=== PATIENT | female | born 1990 | race African-American/Black ===

== ENCOUNTER 2019-10-16 19:25 | Observation (INO) ==
[2019-10-16] MEDS ORDERED: SODIUM CHLORIDE 0.9% 1000ML 1,000 ML IV ONE (19:48)
--- NOTE | 2019-10-16 19:55 | Emergency Department Note ---
Impression & Plan Acute GI bleeding, Colitis, Proctitis ED Provider Note NAME: KAVEH PADGETT AGE: 29 SEX: F : 1990 ARRIVES VIA: Walk-In INFORMANT: [Patient] ED PROVIDER(S): [Wilman Aguillon MD] CHIEF COMPLAINT: Rectal bleeding HISTORY OF PRESENT ILLNESS: Patient is a 29-year-old female presents to the ER with about 40 to 50 minutes of rectal bleeding. The patient was in the ED 5 days ago for constipation and was given an enema. Since the enema, she has had loose stool. She has been to urgent care a few times for some rectal irritation and is now on a rectal cream as well as some Tylenol 3. The patient states that her rectal discomfort was improving. Today, she suddenly had blood per rectum, patient even noticed the blood on her underwear. She has had no abdominal pain. No fever, chills, cough or congestion. Patient states that she has felt dizzy and kind of weak though over the last couple days, she thinks she might be dehydrated. She has no history of constipation or of rectal bleeding. She is about 2 or 3 weeks into her menstrual cycle. No concern for . REVIEW OF SYSTEMS: See HPI for pertinent positives and negatives. A total of ten systems were reviewed and were otherwise negative. PMHx/PSHx: See Below SOCIAL HISTORY: See Below. PHYSICAL EXAM: GENERAL: Patient is in no acute distress. HEENT: No acute trauma, normocephalic atraumatic, mucous membranes moist, no nasal congestion, no scleral icterus. NECK: No stridor, no adenopathy, no meningismus, trachea is midline. LUNGS: Clear to auscultation bilaterally, no wheeze, no rhonchi, breath sounds equal. HEART: Without murmurs gallops or rubs, regular rate and rhythm. ABDOMEN: Soft, nontender, bowel sounds positive, no hernias, no peritonitis. EXTREMITIES: No cyanosis or edema, full range of motion of all the joints without pain or difficulty, no signs for acute trauma. NEUROLOGIC: Oriented x 3, no acute motor or sensory deficits, no focal weakness. SKIN: No rash, no jaundice, no diaphoresis. Rectal: The patient does have some anal irritation, no active bleeding to the areas of irritation. There is no hemorrhoid. She does have dark blood coming from within the rectum. DIFFERENTIAL DIAGNOSIS: Diverticulosis, AVM, coagulopathy, colitis, inflammatory bowel disease, malignancy, Lizette-Alvarado tear, esophagitis, peptic ulcer disease, variceal bleed, gastritis, epistaxis, fissure, hemorrhoids, as well as other pathologies. EMERGENCY DEPARTMENT COURSE/PROCEDURES: MEDICAL DECISION MAKING: There is no leukocytosis or anemia. She has a normal platelet count. No significant electrolyte abnormality or kidney failure. There were a few very subtle liver enzyme elevations, the bilirubin was normal. Lipase is normal. testing was negative. Abdominal and pelvic T shows sigmoid colitis and proctitis. No bowel obstruction, no drainable abscess. On exam, the patient did not have any abdominal pain. She did have dark maroon-colored blood within the rectum. There was some anal excoriation seen as well. The patient presents with rectal bleeding. She does have a lower GI bleed by my exam. She likely is bleeding from the colitis and proctitis. I did speak with GI, the patient does not require any emergent GI procedure this evening. I do think a hospital stay is warranted. Her hemoglobin needs trended. She needs monitoring. She may in fact require a GI procedure/colonoscopy. I spoke to the patient, I talked with the family service caseworker. The on-call hospitalist was consulted. Past Med/Surg History Medical History Hypothyroidism Sjogren's disease Social History Feels Safe at Home: Yes Smoking Status: Former smoker Allergies Allergies Allergy/AdvReac Type Severity Reaction Status Date / Time albuterol AdvReac Intermediate CHEST Verified 10/16/19 21:26 HEAVINESS Home Meds Home Medications Medication Instructions Recorded Confirmed carbamazepine 600 mg PO BID 10/11/19 10/16/19 cholecalciferol (vitamin D3) 50,000 unit PO WK 10/11/19 10/16/19 clonazepam 0.5 mg PO DAILY PRN 10/11/19 10/16/19 fludrocortisone 0.2 mg PO QAM 10/11/19 10/16/19 levothyroxine [Synthroid] 224 mcg PO QAM 10/11/19 10/16/19 montelukast 10 mg PO HS 10/11/19 10/16/19 pregabalin 75 mg PO QAM 10/11/19 10/16/19 pregabalin 150 mg PO HS 10/11/19 10/16/19 rituximab [Rituxan] 0 mg IV Q5M 10/11/19 10/16/19 sertraline 200 mg PO HS 10/11/19 10/16/19 topiramate 75 mg PO HS 10/11/19 10/16/19 acetaminophen-codeine 1 tab PO BID PRN 10/16/19 10/16/19 azelastine 2 spray INTRANASAL BID 10/16/19 10/16/19 budesonide-formoterol [Symbicort] 2 puff INHALATION Q12H PRN 10/16/19 10/16/19 ibuprofen 800 mg PO Q8H PRN 10/16/19 10/16/19 ketorolac 10 mg PO Q6H PRN 10/16/19 10/16/19 levonorgestrel [Mirena] 20 mcg INTRAUTERINE DIRECTED 10/16/19 10/16/19 metronidazole 500 mg PO TID 10/16/19 10/16/19 prochlorperazine maleate 5 - 10 mg PO Q8H PRN 10/16/19 10/16/19 Results & Data (ED) Vital Signs Vital Signs - 24 hr 10/16/19 19:30 10/16/19 22:17 Temperature 36.5 C Temperature Source Oral Pulse Rate 89 Pulse Rate [Right Finger] 54 L Respiratory Rate 18 18 Respiratory Effort / Characteristics Non-Labored Spontaneous Respiratory Depth Normal Respiratory Pattern Regular Blood Pressure 133/86 Blood Pressure [Right Arm] 130/84 Blood Pressure Mean 101 Blood Pressure Mean [Right Arm] 99 Blood Pressure Position Sitting Pulse Oximetry 98 99 Oxygen Delivery Method Room Air Sepsis Recent Fever Within 48 Hours No Sepsis New/Unexplained Change in Mental Status No Sepsis Action Taken by Nursing No Action Required Home Medications Current Medication List: was personally reviewed by me Laboratory Data Attestation: I reviewed the patient's lab results. Result diagrams: 10/16/19 19:59 10/16/19 19:59 Lab Results 10/16/19 10/16/19 10/16/19 Range/Units 19:59 19:59 19:59 WBC 5.21 (4.8-10.8) K/uL RBC 5.15 (4.2-5.4) M/uL Hgb 14.0 (12.0-16.0) g/dL Hct 40.4 (37-47) % MCV 78.4 L (80-100) fL MCH 27.2 (25-34) pg MCHC 34.7 (32-36) g/dL RDW Std Deviation 38.3 (36.4-46.3) fL RDW Coeff of [place] 13.6 (11.5-14.5) % Plt Count 306 (130-400) K/uL MPV 8.9 (7.4-10.4) fL Immature Gran % (Auto) 0.2 % Neut % (Auto) 49.4 % Lymph % (Auto) 31.7 % [place] % (Auto) 17.3 % Eos % (Auto) 1.0 % Baso % (Auto) 0.4 % Immature Gran # (Auto) 0.01 (0.00-0.02) K/uL Neut # (Auto) 2.58 (1.4-6.5) K/uL Lymph # (Auto) 1.65 (1.2-3.4) K/uL [place] # (Auto) 0.90 H (0.11-0.59) K/uL Eos # (Auto) 0.05 (0-0.5) K/uL Baso # (Auto) 0.02 (0-0.2) K/uL ESR (0-21) mm/hr Sodium 140 (136-145) mmol/L Potassium 3.5 (3.5-5.1) mmol/L Chloride 106 (98-107) mmol/L Carbon Dioxide 27 (21-32) mmol/L Anion Gap 7.0 (3-11) BUN 4 L (7-18) mg/dl Creatinine 0.88 (0.6-1.2) mg/dl Est Cr Clr Drug Dosing 128.7 ml/min Est GFR ( Amer) 102.2 Est GFR (Non-Af Amer) 88.2 BUN/Creatinine Ratio 5.0 L (10-20) Glucose 88 (70-99) mg/dl Calcium 9.3 (8.5-10.1) mg/dl Total Bilirubin 0.4 (0.2-1) mg/dl AST 47 H (15-37) U/L ALT 82 H (12-78) U/L Alkaline Phosphatase 79 (45-117) U/L Total Protein 7.8 (6.4-8.2) gm/dl Albumin 3.6 (3.4-5.0) gm/dl Globulin 4.2 H (2.5-4.0) gm/dl Albumin/Globulin Ratio 0.9 (0.9-2) Lipase 47 L (73-393) U/L HCG, Qual Negative (Negative) 10/16/19 Range/Units 19:59 WBC (4.8-10.8) K/uL RBC (4.2-5.4) M/uL Hgb (12.0-16.0) g/dL Hct (37-47) % MCV (80-100) fL MCH (25-34) pg MCHC (32-36) g/dL RDW Std Deviation (36.4-46.3) fL RDW Coeff of [place] (11.5-14.5) % Plt Count (130-400) K/uL MPV (7.4-10.4) fL Immature Gran % (Auto) % Neut % (Auto) % Lymph % (Auto) % [place] % (Auto) % Eos % (Auto) % Baso % (Auto) % Immature Gran # (Auto) (0.00-0.02) K/uL Neut # (Auto) (1.4-6.5) K/uL Lymph # (Auto) (1.2-3.4) K/uL [place] # (Auto) (0.11-0.59) K/uL Eos # (Auto) (0-0.5) K/uL Baso # (Auto) (0-0.2) K/uL ESR 18 (0-21) mm/hr Sodium (136-145) mmol/L Potassium (3.5-5.1) mmol/L Chloride (98-107) mmol/L Carbon Dioxide (21-32) mmol/L Anion Gap (3-11) BUN (7-18) mg/dl Creatinine (0.6-1.2) mg/dl Est Cr Clr Drug Dosing ml/min Est GFR ( Amer) Est GFR (Non-Af Amer) BUN/Creatinine Ratio (10-20) Glucose (70-99) mg/dl Calcium (8.5-10.1) mg/dl Total Bilirubin (0.2-1) mg/dl AST (15-37) U/L ALT (12-78) U/L Alkaline Phosphatase (45-117) U/L Total Protein (6.4-8.2) gm/dl Albumin (3.4-5.0) gm/dl Globulin (2.5-4.0) gm/dl Albumin/Globulin Ratio (0.9-2) Lipase (73-393) U/L HCG, Qual (Negative) Administered Medications Famotidine 20 mg/ Syringe 5 mls @ 2.5 mls/min IV BID NELSY Stop: 11/15/19 22:59 Last Admin: 10/16/19 23:12 Dose: Not Given Documented by: [id number] Ioversol (Optiray 320 100ml) 93 ml IV ONCE PRN PRN Reason: Interaction Checking Stop: 10/20/19 20:41 Last Admin: 10/16/19 20:42 Dose: 1 ml Documented by: [id number] Discontinued Medications Famotidine (Pepcid 20mg Iv Push) Confirm Administered Dose 20 mg IV .STK-MED ONE Stop: 10/16/19 23:11 Last Admin: 10/16/19 23:12 Dose: 20 mg Documented by: [id number] Sodium Chloride (Nss 1000ml) 1,000 mls @ 999 mls/hr IV .Q1H1M ONE Stop: 10/16/19 20:48 Last Infusion: 10/16/19 21:02 Dose: 0 mls/hr Documented by: [id number] Admin: 10/16/19 20:01 Dose: 999 mls/hr Documented by: [id number] Imaging Data Radiologist's Impression: CT abd pelvis IV con only CT DOSE: 1303.22 mGy.cm HISTORY: Pain rectal bleeding, pelvic pain TECHNIQUE: Multiaxial CT images of the abdomen and pelvis were performed following the use of intravenous contrast. A dose lowering technique was utilized adhering to the principles of ALARA. COMPARISON STUDY: None. FINDINGS: The lung bases are clear. The liver spleen and pancreas are unremarkable. Kidneys enhance uniformly. The upper abdominal bowel pattern is nonobstructive. Within the pelvis there is evidence for mild very rectal infiltrative change. This is seen to a lesser extent involving the inferior sigmoid. No evidence for abscess or collection. There is an intrauterine device within the central uterine canal. The bladder is midline. IMPRESSION: 1. Findings consistent with mild proctitis as well as lower sigmoid colitis. 2. Moderate perirectal as well as lower sigmoid pericolonic infiltrative change. 3. Appearance is suggestive of proctitis and lower sigmoid colitis. 4. No evidence for drainable abscess or collection at this time. Blood Pressure Blood Pressure Findings: Elevated blood pressure Blood Pressure Disposition: further management by hospitalist Discharge Plan Visit Data *Final* Discharge Date/Time: 10/16/19 23:17 Chief Complaint: Bleeding Stated Complaint: BLEEDING-LIGHT HEADED-LOOSE BOWELS SINCE SUNDAY ED Provider: Wilman Aguillon Discharge Problem: Acute GI bleeding, Colitis, Proctitis Patient Disposition: Admitted As Inpatient Condition: Good Discharge Instructions Interventions: ED Discharge Assessment Last Done: 10/16/19 23:17
[2019-10-16 20:10] LABS: Basophils # (auto) 0.02 K/uL (0-0.2); Basophils % (auto) 0.4 %; Eosinophils # (auto) 0.05 K/uL (0-0.5); Hematocrit (blood only) 40.4 % (37-47); Immature Granulocytes # (auto) 0.01 K/uL (0.00-0.02); Immature Granulocytes % (auto) 0.2 %; Lymphocytes # (auto) 1.65 K/uL (1.2-3.4); Lymphocytes % (auto) 31.7 %; Mean Corpuscular Hemoglobin 27.2 pg (25-34); Mean Corpuscular Hgb Conc 34.7 g/dL (32-36); Mean Corpuscular Volume 78.4 fL (80-100); Mean Platelet Volume 8.9 fL (7.4-10.4); Monocytes % (auto) 17.3 %; Neutrophils # (auto) 2.58 K/uL (1.4-6.5); Neutrophils % (auto) 49.4 %; Platelet Count 306 K/uL (130-400); RDW Coefficient of Variation 13.6 % (11.5-14.5); RDW Standard Deviation 38.3 fL (36.4-46.3); Red Blood Count 5.15 M/uL (4.2-5.4); White Blood Count 5.21 K/uL (4.8-10.8)
[2019-10-16 20:25] LABS: Albumin Level 3.6 gm/dl (3.4-5.0); Calcium 9.3 mg/dl (8.5-10.1); Creatinine Clr Calc Pharmacy 128.7 ml/min; Est GFR (African American) 102.2; Est GFR (Non-African American) 88.2; Potassium 3.5 mmol/L (3.5-5.1)
[2019-10-16 20:28] LABS: Albumin Globulin Ratio 0.9 (0.9-2); Bilirubin,Total 0.4 mg/dl (0.2-1); Globulin 4.2 gm/dl (2.5-4.0); Total Protein 7.8 gm/dl (6.4-8.2)
[2019-10-16 20:37] LABS: Pregnancy Test, Serum Negative (Negative)
[2019-10-16] MEDS ORDERED: IOVERSOL 100ml IV PRN (20:42)
--- NOTE | 2019-10-16 20:56 | CT Scan Report ---
CT abd pelvis IV con only CT DOSE: 1303.22 mGy.cm HISTORY: Pain rectal bleeding, pelvic pain TECHNIQUE: Multiaxial CT images of the abdomen and pelvis were performed following the use of intrave nous contrast. A dose lowering technique was utilized adhering to the principles of ALARA. COMPARISON STUDY: None. FINDINGS: The lung bases are clear. The liver spleen and pancreas are unremarkable. Kidneys enhance uniformly. The upper abdominal bowel pattern is nonobstructive. Within the pelvis there is evidence for mild very rectal infiltrative change. This is seen to a lesse r extent involving the inferior sigmoid. No evidence for abscess or collection. There is an intrauterine device within the central uterine canal. The bladder is midline. IMPRESSION: 1. Findings consistent with mild proctitis as well as lower sigmoid colitis. 2. Moderate perirectal as well as lower sigmoid pericolonic infiltrative change. 3. Appearance is suggestive of proctitis and lower sigmoid colitis. 4. No evidence for drainable abscess or collection at this time. ACT 112: Negative or not required by law. The above report was generated using voice recognition software. It may contain grammatical, syntax or spelling errors. Electronically signed by: Joselito Beverly M.D. 10/16/2019 8:54 PM
--- NOTE | 2019-10-16 22:58 | History & Physical Report ---
Date of Service October 16, 2019 Assessment & Plan (1) Colitis: 29-year-old female past medical history significant for Sjogren's, hypothyroidism admitted for colitis, proctitis, and rectal bleeding. Rectal bleeding in the setting of active colitis/proctitis: Hgb stable at 14, patient without active bleeding at this time on my exam, and without GI symptoms. NPO now, famotidine 20mg IV BID, NSS @150cc/hr. GI consult placed. Zofran PRN nausea. ESR ordered. Stool culture, C. diff ordered. Patient has a personal and family history of autoimmune disease. Differentials include infectious colitis, inflammatory bowel disease. CBC AM. Sjogren's disease Takes Rituximab at home. Hypothyroidism Continue levothyroxine when NPO d/c'ed. Elevated LFTs: Minimal elevation; differentials include primary sclerosing cholangitis, autoimmune hepatitis, NAFLD, viral hepatitis. Repeat CMP AM. Abdominal exam is benign and patient is without abdominal pain. Code Status: FULL CODE FEN/GI: NPO, NSS @ 150cc/hr DVT ppx: SCDs Dispo: Telemetry for cardiac monitoring, GI consult AM (2) Proctitis: (3) Painless rectal bleeding: (4) Sjogren's disease: (5) Hypothyroidism: History of Present Illness Chief Complaint: rectal bleeding, dizziness Primary Care Provider: NO PCP 29-year-old female past medical history significant for Sjogren's, hypothyroidism presented to the ED for rectal bleeding and dizziness. Was seen several days ago in our ED for constipation, had used an enema at home without relief of constipation. Had a milk molasses enema here and reports that since having the enema she has been having diarrhea every 1-2 hours. Today at about 5 PM she started to notice bright red blood mixed with diarrhea. She immediately came to the ED for evaluation. On evaluation her hemoglobin was found to be normal at 14, elevated AST 47 ALT 82. CTAP showed colitis and proctitis. On ED exam of patient's anus, on any manipulation of the area patient would have maroon-red pooling of blood. Hospitalist team was consulted for admission. On my interview patient denies any abdominal pain, nausea, vomiting, fevers, chills. Also denies chest pain, shortness of breath, headaches, dizziness, dysuria, hematuria. Denies any prior history of any GI issues. Has a family history significant for rheumatoid arthritis, lupus, Grady's granulomatosis. No history of any bleeding disorders in the family that she is aware of. Of note, reports that prior to getting her IUD she used to have very heavy menses that would last 7 to 10 days, and during her menses she would have to change her pad/tampon every 2-3 hours. This is improved since starting her IUD. This used to be associated with intermittent weakness and fatigue. Allergies Allergy/AdvReac Type Severity Reaction Status Date / Time albuterol AdvReac Intermediate CHEST Verified 10/16/19 21:26 HEAVINESS nickel AdvReac Rash Verified 10/17/19 02:36 Home Medications Home Medications Medication Instructions Recorded Confirmed Type carbamazepine 600 mg PO BID 10/11/19 10/16/19 History cholecalciferol (vitamin D3) 50,000 unit PO WK 10/11/19 10/16/19 History clonazepam 0.5 mg PO DAILY PRN 10/11/19 10/16/19 History fludrocortisone 0.2 mg PO QAM 10/11/19 10/16/19 History levothyroxine [Synthroid] 224 mcg PO QAM 10/11/19 10/16/19 History montelukast 10 mg PO HS 10/11/19 10/16/19 History pregabalin 75 mg PO QAM 10/11/19 10/16/19 History pregabalin 150 mg PO HS 10/11/19 10/16/19 History rituximab [Rituxan] 0 mg IV Q5M 10/11/19 10/16/19 History sertraline 200 mg PO HS 10/11/19 10/16/19 History topiramate 75 mg PO HS 10/11/19 10/16/19 History acetaminophen-codeine 1 tab PO BID PRN 10/16/19 10/16/19 History azelastine 2 spray INTRANASAL BID 10/16/19 10/16/19 History budesonide-formoterol [Symbicort] 2 puff INHALATION Q12H PRN 10/16/19 10/16/19 History ibuprofen 800 mg PO Q8H PRN 10/16/19 10/16/19 History ketorolac 10 mg PO Q6H PRN 10/16/19 10/16/19 History levonorgestrel [Mirena] 20 mcg INTRAUTERINE DIRECTED 10/16/19 10/16/19 History metronidazole 500 mg PO TID 10/16/19 10/16/19 History prochlorperazine maleate 5 - 10 mg PO Q8H PRN 10/16/19 10/16/19 History Past Med/Surg History Medical History Hypothyroidism Sjogren's disease Social History Preferred Language: Bulgarian Communication Ability: Effective [employer] Steam [employer] Required: Yes Beliefs That Will Affect Care: None Current Living Situation: Alone Other Information That Helps Us Care for You: No Feels Safe at Home: Yes Safety Concerns: Feels Safe At This Time Smoking Status: Never smoker Hx Alcohol Use: Yes Alcohol type: wine Hx Substance Use: No Review of Systems Review of Systems: All systems reviewed & are unremarkable except as noted in HPI & below Constitutional: no fever, no chills and no malaise Respiratory: no cough and no dyspnea Cardiovascular: no chest pain, no palpitations and no edema Gastrointestinal: + diarrhea/loose stools and + blood in stools; no abdominal pain, no nausea, no vomiting and no constipation Genitourinary: no dysuria and no hematuria Physical Exam Constitutional: WD/WN, vitals as above Eyes: PERRL, conjunctivae normal, anicteric sclerae ENMT: external ear and nose normal, oropharynx normal Neck: normal visual inspection Respiratory: normal respiratory effort, lungs clear to auscultation Cardiovascular: RRR, no murmur, no edema Gastrointestinal (Abdomen): normal bowel sounds, soft, nontender, no hepatosplenomegaly Rectal Exam: no hemorrhoids no anal fissure, no external hemorrhoids, dried blood present Musculoskeletal: no cyanosis or clubbing, extremities motor strength 5/5 Skin: no rashes, warm and dry Neurologic: AAOx3, normal speech. PERRLA, EOMI, no nystagmus. Normal visual acuity bilaterally. Bilateral UE, LE, and face without sensory or motor deficits. DTRs normal. II- XII intact bilaterally. No tremor. Psychiatric: A+Ox3, euthymic affect Results & Data Results & Data ([facility]) Vital Signs (Past 12 Hours) Vital Signs Temp Pulse Pulse Resp BP BP Pulse Ox 10/16/19 22:17 54 L 18 130/84 99 10/16/19 19:30 36.5 C 89 18 133/86 98 Code Status & VTE Plan VTE Prophylaxis Plan VTE Prophylaxis will be ordered: Yes Supervising Physician Co-Signing Physician Notes Attending addendum: I have physically seen this patient, have supervised the medical residents activities, and agree with the H&P unless as otherwise noted. Assessment and Plan: Proctocolitis including lower sigmoid colon/bright red blood per rectum- Hemoglobin 14. N.p.o. Check stool culture and C. difficile. History of autoimmune disease, differential also includes bacterial infection, C. difficile, inflammatory bowel disease and other. Zofran 4 mg IV every 6 hours as needed Famotidine 20 mg IV twice daily NSS at 150 mils per hour Follow serial laboratories Sjogren's disease- on rituximab at home Elevated LFTs- Differential as noted If persistent or worse in a.m., will pursue additional work-up. Remainder orders and notations as noted. Resident Activity Tracking Resident Involvement: Resident Care Provided Care Provided: Adult Hospital Medicine (1) Sjogren's disease Sjogren's organ involvement: unspecified organ involvement Qualified Code(s): M35.00 - Sicca syndrome, unspecified (2) Hypothyroidism Hypothyroidism type: unspecified Qualified Code(s): E03.9 - Hypothyroidism, unspecified
[2019-10-16] MEDS ORDERED: FAMOTIDINE 20MG/5ML IV PUSH IV ONE (23:10)
[2019-10-16] MEDS: FAMOTIDINE 20 MG in SYRINGE 3 ML IV SCH (23:12)
[2019-10-17] MEDS ORDERED: ONDANSETRON INJ 2 MG/ML 2 ML VIAL IV PRN (00:35)
[2019-10-17] MEDS ORDERED: NON-FORMULARY MEDICATION (Levonorgestrel [Mirena] 20 MCG) IU SCH (00:35)
[2019-10-17] MEDS ORDERED: PNEUMOCOCCAL ADMINISTRATION CHARGE ONE (01:00)
[2019-10-17] MEDS ORDERED: PNEUMOCOCCAL POLYSACCHARIDES 25 MCG/0.5 ML VIAL/SYR IM ONE (01:00)
[2019-10-17] MEDS: SODIUM CHLORIDE 0.9% 1000ML 1,000 ML IV SCH ×4 (02:00→21:24)
[2019-10-17] MEDS ORDERED: FLUTICASONE/VILANTEROL 200/25MCG 14 PUFFS/INHALER INH PRN (05:31)
[2019-10-17 06:03] LABS: Basophils # (auto) 0.02 K/uL (0-0.2); Basophils % (auto) 0.4 %; Eosinophils # (auto) 0.03 K/uL (0-0.5); Eosinophils % (auto) 0.5 %; Hematocrit (blood only) 38.7 % (37-47); Hemoglobin 12.9 g/dL (12.0-16.0); Immature Granulocytes # (auto) 0.02 K/uL (0.00-0.02); Immature Granulocytes % (auto) 0.4 %; Lymphocytes # (auto) 1.66 K/uL (1.2-3.4); Lymphocytes % (auto) 30.4 %; Mean Corpuscular Hemoglobin 26.1 pg (25-34); Mean Corpuscular Hgb Conc 33.3 g/dL (32-36); Mean Corpuscular Volume 78.3 fL (80-100); Mean Platelet Volume 9.3 fL (7.4-10.4); Monocytes # (auto) 0.69 K/uL (0.11-0.59); Monocytes % (auto) 12.6 %; Neutrophils # (auto) 3.04 K/uL (1.4-6.5); Neutrophils % (auto) 55.7 %; Platelet Count 299 K/uL (130-400); RDW Coefficient of Variation 13.7 % (11.5-14.5); RDW Standard Deviation 38.7 fL (36.4-46.3); Red Blood Count 4.94 M/uL (4.2-5.4); White Blood Count 5.46 K/uL (4.8-10.8)
[2019-10-17 06:37] LABS: Albumin Level 3.4 gm/dl (3.4-5.0); BUN Creatinine Ratio 6.5 (10-20); Calcium 8.8 mg/dl (8.5-10.1); Creatinine Clr Calc Pharmacy 134.4 ml/min; Est GFR (African American) 106.6; Est GFR (Non-African American) 91.9; Potassium 3.7 mmol/L (3.5-5.1)
[2019-10-17 06:40] LABS: Albumin Globulin Ratio 0.9 (0.9-2); Bilirubin,Total 0.5 mg/dl (0.2-1); Globulin 3.7 gm/dl (2.5-4.0); Total Protein 7.1 gm/dl (6.4-8.2)
[2019-10-17] MEDS ORDERED: FLUTICASONE/VILANTEROL 200/25MCG 14 PUFFS/INHALER INH SCH (09:00)
[2019-10-17 10:41] LABS: Appearance Urine Cloudy (Clear); Bacteria Urine Automated 1+ (Negative); Bilirubin Urine Negative (Negative); Blood Urine Negative (Negative); Color Urine Yellow; Epithelial Cell Urine Auto >30 /lpf (0-5); Glucose Urine UA Negative (Negative); Ketones Urine Trace (Negative); Leukocyte Esterase Urine Negative (Negative); Nitrite Urine Negative (Negative); Protein Urine Negative (Negative); RBC Urine Automated 0-4 /hpf (0-4); Specific Gravity Urine 1.024 (1.000-1.030); Urobilinogen Urine Negative (Negative)
[2019-10-17] MEDS: FAMOTIDINE 20 MG in SYRINGE 3 ML IV SCH ×2 (13:41→21:27)
--- NOTE | 2019-10-17 15:38 | Gastrointestinal Consultation ---
Date of Consultation October 17, 2019 Assessment & Plan (1) Acute GI bleeding: possible colitis on CT diarrhea Await stool studies but also recommend colonoscopy because of her altered bowel habits with constipation and the thickening of bowel on CT. Will advance diet and if she does well she can be DCed and get her colonsocopy in [facility] which is where she would like to have it done if outpt. On the other hand, if she continues to have problems over the weekend on po then she can be prepped sunday for inpt colonoscopy sunday. Elevated LFTs--improved. CT no liver problems. Follow for now. History of Present Illness Reason for Consultation: procitis, rectal bleeding Requesting Physician: DR Ron Villalobos Attending Physician: Vaughn Manzano History of Present Illness CC diarrhea, rectal bleeding HPI Pt live in [facility] and is visting family over the last week. She states normally has two stools on looser side daily. If she eats lactose or spicy foods she will get blayne diarrhea. She developed constipation which she states she never has to any significant degree and went to ER here 10/11/19. At that time she was given a milk of molasses enema which worked well. However, since then she developed blayne diarrhea and also rectal bleeding with bright red blood. She came to ER 10/15 and noted to have maroon stool on rectal exam. Hgb 14 down to 12. [address] scan on admit mild proctitis, lower sigmoid colitis. She has been NPO and states today had more solid stool and no blood noted. Stools sent today for Cdiff rejected because formed stool and stool for WBC and cx pending. No abd pain. She does have some anal irritation. Mildly elevated LFTS on admit improving. Fhx of RA. Allergies Allergy/AdvReac Type Severity Reaction Status Date / Time albuterol AdvReac Intermediate CHEST Verified 10/16/19 21:26 HEAVINESS nickel AdvReac Rash Verified 10/17/19 02:36 Home Medications Home Medications Medication Instructions Recorded Confirmed Type carbamazepine 600 mg PO BID 10/11/19 10/16/19 History cholecalciferol (vitamin D3) 50,000 unit PO WK 10/11/19 10/16/19 History clonazepam 0.5 mg PO DAILY PRN 10/11/19 10/16/19 History fludrocortisone 0.2 mg PO QAM 10/11/19 10/16/19 History levothyroxine [Synthroid] 224 mcg PO QAM 10/11/19 10/16/19 History montelukast 10 mg PO HS 10/11/19 10/16/19 History pregabalin 75 mg PO QAM 10/11/19 10/16/19 History pregabalin 150 mg PO HS 10/11/19 10/16/19 History rituximab [Rituxan] 0 mg IV Q5M 10/11/19 10/16/19 History sertraline 200 mg PO HS 10/11/19 10/16/19 History topiramate 75 mg PO HS 10/11/19 10/16/19 History acetaminophen-codeine 1 tab PO BID PRN 10/16/19 10/16/19 History azelastine 2 spray INTRANASAL BID 10/16/19 10/16/19 History budesonide-formoterol [Symbicort] 2 puff INHALATION Q12H PRN 10/16/19 10/16/19 History ibuprofen 800 mg PO Q8H PRN 10/16/19 10/16/19 History ketorolac 10 mg PO Q6H PRN 10/16/19 10/16/19 History levonorgestrel [Mirena] 20 mcg INTRAUTERINE DIRECTED 10/16/19 10/16/19 History metronidazole 500 mg PO TID 10/16/19 10/16/19 History prochlorperazine maleate 5 - 10 mg PO Q8H PRN 10/16/19 10/16/19 History Patient History Medical History Hypothyroidism Sjogren's disease Social History Preferred Language: Lao Communication Ability: Effective Internet Marketing Consultant Required: Yes Beliefs That Will Affect Care: None Current Living Situation: Alone Other Information That Helps Us Care for You: No Feels Safe at Home: Yes Safety Concerns: Feels Safe At This Time Smoking Status: Never smoker Hx Alcohol Use: Yes Alcohol type: wine Hx Substance Use: No Review of Systems Review of Systems: All systems reviewed & are unremarkable except as noted in HPI & below Physical Exam Constitutional: WD/WN, vitals as above ENMT: external ear and nose normal, oropharynx normal Neck: normal visual inspection and trachea midline Respiratory: normal respiratory effort, lungs clear to auscultation Cardiovascular: RRR, no murmur, no edema Gastrointestinal (Abdomen): normal bowel sounds, soft, nontender, no hepatosplenomegaly Neurologic: PERRL, EOMI, accommodation nl, no face palsy, no dysarthria Psychiatric: A+Ox3, euthymic affect Results & Data ([facility]) Vital Signs (Past 12 Hours) Vital Signs Temp Pulse Resp BP Pulse Ox 10/17/19 08:05 36.7 C 55 L 18 113/73 98
--- NOTE | 2019-10-17 22:53 | Hospitalist Progress Note ---
Date of Service October 17, 2019 Assessment & Plan (1) Colitis: 29-year-old female past medical history significant for Sjogren's, hypothyroidism admitted for colitis, proctitis, and rectal bleeding. Rectal bleeding in the setting of active colitis/proctitis: Hgb stable at 14, patient without active bleeding at this time on my exam, and without GI symptoms. GI consult placed. Appreciate input. Patient has clinically improved. If she continues to feel well overnight, will likely discharge. Zofran PRN nausea. ESR ordered. Stool culture, C. diff ordered. Patient has a personal and family history of autoimmune disease. Differentials include infectious colitis, inflammatory bowel disease: will likely require outpatient colonoscopy. Appreciate input from Gastro Sjogren's disease Takes Rituximab at home. Hypothyroidism Continue levothyroxine when NPO d/c'ed. Elevated LFTs: Minimal elevation; differentials include primary sclerosing cholangitis, autoimmune hepatitis, NAFLD, viral hepatitis. Repeat CMP AM. Abdominal exam is benign and patient is without abdominal pain. Code Status: FULL CODE (2) Proctitis: (3) Painless rectal bleeding: (4) Sjogren's disease: (5) Hypothyroidism: Admission and Anticipated Discharge Date Admission Date: October 16, 2019 Subjective Patient reports feeling well. No longer having any diarrhea or blood in stools. Never had abd. pain. 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 Review of Systems Review of Systems: All systems reviewed & are unremarkable except as noted in HPI & below Physical Exam Physical Exam: Constitutional: WD/WN, vitals as above Eyes: PERRL, conjunctivae normal, anicteric sclerae ENMT: external ear and nose normal, oropharynx normal Neck: normal visual inspection Respiratory: normal respiratory effort, lungs clear to auscultation Cardiovascular: RRR, no murmur, no edema Gastrointestinal (Abdomen): normal bowel sounds, soft, nontender, no hepatosplenomegaly Rectal Exam: no hemorrhoids no anal fissure, no external hemorrhoids, dried blood present Musculoskeletal: no cyanosis or clubbing, extremities motor strength 5/5 Skin: no rashes, warm and dry Neurologic: AAOx3, normal speech. PERRLA, EOMI, no nystagmus. Normal visual acuity bilaterally. Bilateral UE, LE, and face without sensory or motor deficits. DTRs normal. II- XII intact bilaterally. No tremor. Psychiatric: A+Ox3, euthymic affect Results & Data Results & Data ([facility]) Vital Signs (Past 12 Hours) Vital Signs Temp Pulse Resp BP Pulse Ox 10/17/19 15:47 36.5 C 49 L 16 127/87 97 PG Care Time/CCT Total # of Minutes Spent Total Time Spent with Patient: Total time spent is greater than 50% in coordination of care (as documented) at patient's floor/unit and/or counseling p atient: Coding Level of Care Code 55057 Subseq Obs Care Lvl 2 Diagnoses Colitis K52.9 Proctitis K62.89 Painless rectal bleeding K62.5 Sjogren's disease M35.00 Sjogren's organ involvement: unspecified organ involvement Hypothyroidism E03.9 Hypothyroidism type: unspecified (1) Sjogren's disease Sjogren's organ involvement: unspecified organ involvement Qualified Code(s): M35.00 - Sicca syndrome, unspecified (2) Hypothyroidism Hypothyroidism type: unspecified Qualified Code(s): E03.9 - Hypothyroidism, unspecified
[2019-10-18] MEDS: SODIUM CHLORIDE 0.9% 1000ML 1,000 ML IV SCH (03:42)
--- NOTE | 2019-10-18 05:19 | Billing Data ---
Date of Service October 18, 2019 Coding Level of Care Code 91600 Initial Inpt Care Lvl 3
[2019-10-18 07:38] LABS: Basophils # (auto) 0.02 K/uL (0-0.2); Basophils % (auto) 0.4 %; Eosinophils # (auto) 0.03 K/uL (0-0.5); Eosinophils % (auto) 0.6 %; Hematocrit (blood only) 36.7 % (37-47); Hemoglobin 12.3 g/dL (12.0-16.0); Immature Granulocytes # (auto) 0.01 K/uL (0.00-0.02); Immature Granulocytes % (auto) 0.2 %; Lymphocytes # (auto) 1.25 K/uL (1.2-3.4); Lymphocytes % (auto) 26.5 %; Mean Corpuscular Hemoglobin 26.3 pg (25-34); Mean Corpuscular Hgb Conc 33.5 g/dL (32-36); Mean Corpuscular Volume 78.4 fL (80-100); Mean Platelet Volume 8.8 fL (7.4-10.4); Monocytes # (auto) 0.64 K/uL (0.11-0.59); Monocytes % (auto) 13.6 %; Neutrophils # (auto) 2.76 K/uL (1.4-6.5); Neutrophils % (auto) 58.7 %; Platelet Count 253 K/uL (130-400); RDW Coefficient of Variation 13.6 % (11.5-14.5); RDW Standard Deviation 38.7 fL (36.4-46.3); Red Blood Count 4.68 M/uL (4.2-5.4); White Blood Count 4.71 K/uL (4.8-10.8)
[2019-10-18 07:50] LABS: INR 1.1 (0.9-1.1); Partial Thromboplastin Ratio 1.2; Prothrombin Time 11.9 Seconds (9.0-12.0)
[2019-10-18 08:16] LABS: Albumin Level 3.1 gm/dl (3.4-5.0); BUN Creatinine Ratio 7.9 (10-20); Calcium 8.5 mg/dl (8.5-10.1); Creatinine Clr Calc Pharmacy 150.3 ml/min; Est GFR (Non-African American) 105.3; Potassium 3.6 mmol/L (3.5-5.1)
[2019-10-18 08:18] LABS: Albumin Globulin Ratio 0.9 (0.9-2); Bilirubin,Total 0.4 mg/dl (0.2-1); Globulin 3.6 gm/dl (2.5-4.0); Total Protein 6.7 gm/dl (6.4-8.2)
[2019-10-18] MEDS: FAMOTIDINE 20 MG in SYRINGE 3 ML IV SCH (08:50)
--- NOTE | 2019-10-24 07:39 | Discharge Summary ---
Date of Service October 18, 2019 Admission HPI Per Admitting Provider 29-year-old female past medical history significant for Sjogren's, hypothyroidism presented to the ED for rectal bleeding and dizziness. Was seen several days ago in our ED for constipation, had used an enema at home without relief of constipation. Had a milk molasses enema here and reports that since having the enema she has been having diarrhea every 1-2 hours. Today at about 5 PM she started to notice bright red blood mixed with diarrhea. She immediately came to the ED for evaluation. On evaluation her hemoglobin was found to be normal at 14, elevated AST 47 ALT 82. CTAP showed colitis and proctitis. On ED exam of patient's anus, on any manipulation of the area patient would have maroon-red pooling of blood. Hospitalist team was consulted for admission. On my interview patient denies any abdominal pain, nausea, vomiting, fevers, chills. Also denies chest pain, shortness of breath, headaches, dizziness, dysuria, hematuria. Denies any prior history of any GI issues. Has a family history significant for rheumatoid arthritis, lupus, Grady's granulomatosis. No history of any bleeding disorders in the family that she is aware of. Of note, reports that prior to getting her IUD she used to have very heavy menses that would last 7 to 10 days, and during her menses she would have to change her pad/tampon every 2-3 hours. This is improved since starting her IUD. This used to be associated with intermittent weakness and fatigue. Principal Diagnosis colitis Discharge Exam Constitutional: WD/WN, vitals as above Eyes: PERRL, conjunctivae normal, anicteric sclerae ENMT: external ear and nose normal, oropharynx normal Neck: normal visual inspection Respiratory: normal respiratory effort, lungs clear to auscultation Cardiovascular: RRR, no murmur, no edema Gastrointestinal (Abdomen): normal bowel sounds, soft, nontender, no hepatosplenomegaly Musculoskeletal: no cyanosis or clubbing, extremities motor strength 5/5 Skin: no rashes, warm and dry Neurologic: AAOx3, normal speech. PERRLA, EOMI, moves all extremities. No tremor. Psychiatric: A+Ox3, euthymic affect Discharge Data Allergies Allergy/AdvReac Type Severity Reaction Status Date / Time albuterol AdvReac Intermediate CHEST Verified 10/16/19 21:26 HEAVINESS nickel AdvReac Rash Verified 10/17/19 02:36 Consultations 10/16/19 21:46 ED Decision to Admit Stat 10/17/19 00:35 Consult Gastroenterology Routine Ordered Studies 10/16/19 19:48 CT abd pelvis IV con only Stat Hospital Course (1) Colitis: 29-year-old female past medical history significant for Sjogren's, hypothyroidism admitted for colitis, proctitis, and rectal bleeding. Rectal bleeding in the setting of active colitis/proctitis: Hgb stable at 14, patient without active bleeding at this time on my exam, and without GI symptoms. GI consult placed. Appreciate input. Patient has clinically improved. As she continued to feel well overnight, will likely discharge. Zofran PRN nausea. ESR ordered Stool culture, C. diff ordered. Patient has a personal and family history of autoimmune disease. Differentials include infectious colitis, inflammatory bowel disease: will likely require outpatient colonoscopy. Appreciate input from Gastro On day of discharge, patient reported feeling better. She had no new complaints. She was agreeable to discharge. Sjogren's disease Takes Rituximab at home. Hypothyroidism Continue levothyroxine Elevated LFTs: Minimal elevation; Abdominal exam is benign and patient is without abdominal pain. Code Status: FULL CODE (2) Proctitis: (3) Painless rectal bleeding: (4) Sjogren's disease: (5) Hypothyroidism: Total Time Total Time Spent Total Time Spent (In Minutes): 32 Total Time Includes: Examination of the Patient, Discharge Planning and Medication Reconciliation Discharge Plan Discharge Items Patient Disposition: Home - Self-Care Reason For Visit: RECTAL BLEEDING, PROCTITIS, COLITIS Discharge Diagnosis: Lower GI bleed. Condition on Discharge: Good Activity: Resume your previous activity Non-emergency contact: Primary Care Provider Call non-emergency contact if: you have any medication questions Follow-up/Referrals: PCP,NO [Primary Care Provider] - Diet: Regular Addtl Attending Provider Instructions: Recommend to get your colonsocopy in [facility]. On the other hand, if your problem returns (bleeding) and are in town, to return to ER, or discuss with your primary. Pending Studies at Discharge: No Stand-Alone Forms: [facility] Sm[facility] Cessation Medications and DC Order Prescriptions: Continued prochlorperazine maleate 5 mg tablet 5 - 10 mg PO Q8H PRN (Reason: Migraine Headache) RF: 0 metronidazole 500 mg Tablet 500 mg PO TID RF: 0 acetaminophen-codeine 300-30 mg Tablet 1 tab PO BID PRN (Reason: Pain) RF: 0 ketorolac 10 mg Tablet 10 mg PO Q6H PRN (Reason: Migraine Headache) RF: 0 azelastine 137 mcg (0.1 %) aerosol,spray 2 spray INTRANASAL BID RF: 0 budesonide-formoterol [Symbicort] 160-4.5 mcg/actuation Hfa Aerosol Inhaler 2 puff INHALATION Q12H PRN (Reason: Shortness Of Breath Or Wheezing) RF: 0 Mirena 20 mcg/24 hours (5 yrs) 52 mg Intrauterine Device 20 mcg INTRAUTERINE DIRECTED RF: 0 clonazepam 0.5 mg tablet 0.5 mg PO DAILY PRN (Reason: Anxiety) RF: 0 sertraline 100 mg tablet 200 mg PO HS RF: 0 carbamazepine 200 mg Tablet 600 mg PO BID RF: 0 montelukast 10 mg Tablet 10 mg PO HS RF: 0 fludrocortisone 0.1 mg tablet 0.2 mg PO QAM RF: 0 Rituxan 10 mg/mL Concentrate 0 mg IV Q5M RF: 0 levothyroxine [Synthroid] 112 mcg Tablet 224 mcg PO QAM RF: 0 topiramate 50 mg Tablet 75 mg PO HS RF: 0 pregabalin 75 mg Capsule 150 mg PO HS RF: 0 pregabalin 75 mg Capsule 75 mg PO QAM RF: 0 cholecalciferol (vitamin D3) 1,250 mcg (50,000 unit) capsule 50,000 unit PO WK RF: 0 Discontinued ibuprofen 800 mg Tablet 800 mg PO Q8H PRN (Reason: Pain) RF: 0 Discharge Orders: Discharge Order (Routine); Ordered 10/18/19 Ordered By: Vaughn Manzano Admission Data Admit Date/Time: 10/16/19 22:54 Attending Provider: Vaughn Manzano Admit Provider: Griselda Velasquez Primary Care Provider: PCP,NO Other Providers: Tawanda Jones ; Ugo Sampson Other Interventions: Discharge Summary Assessment (RN) Last Done: 10/18/19 09:42 DC Date/Time DO NOT enter until pt leaves facility: 10/18/19 10:59 Coding Level of Care Code D/C Day Management >30 mins Diagnoses Colitis K52.9 Proctitis K62.89 Painless rectal bleeding K62.5 Sjogren's disease M35.00 Sjogren's organ involvement: unspecified organ involvement Hypothyroidism E03.9 Hypothyroidism type: unspecified Time Spent (min) 35
== END 2019-10-18 10:59 | disposition home or self-care (01) ==
LOC: ED 19:25 → 3N 19:25 → SUATTDRO 22:54 → 3N 23:17